=== PATIENT | female | born 1965 | race Caucasian/White ===

== ENCOUNTER 2021-04-03 16:26 | Outpatient (CLI) | payer OTHER, SELFPAY ==
--- NOTE | 2021-04-03 17:19 | XRR_ITS ---
PROCEDURE INFORMATION: Exam: XR Lumbosacral Spine Exam date and time: 04/03/2021 5:19 PM Age: 55 years old Clinical indication: Patient HX: Reports episodes of stepping wrong and leg giving out. C/O low back pain and right hip pain. Worst with movement; Additional info: M54.50 - low back pain, unspecified TECHNIQUE: Imaging protocol: XR of the lumbosacral spine. Views: 2 or 3 views. COMPARISON: No relevant prior studies available. FINDINGS: Bones/joints: Mild lumbar dextroscoliosis. No evidence of fracture. Normal alignment. Mild disc space narrowing at L5/S1, with suspected mild neural foraminal narrowing. Soft tissues: Unremarkable. Organs: 6 mm calcification overlying the lower pole of the right kidney. XR/XR lumbar spine 2-3V* [id number] IMPRESSION: 1. No acute findings. 2. Mild degenerative changes at L5/S1. 3. 6 mm potential right lower pole renal calculus.
--- NOTE | 2021-04-03 17:19 | XRR_ITS ---
PROCEDURE INFORMATION: Exam: XR Right Hip Exam date and time: 04/03/2021 5:19 PM Age: 55 years old Clinical indication: Hip pain; Patient HX: Reports stepping wrong and leg giving out. C/O low back pain and right hip. Worst with movement; Additional info: M25.551 - pain in right hip TECHNIQUE: Imaging protocol: XR Right hip. Views: 1 view hip with pelvis when performed. COMPARISON: No relevant prior studies available. FINDINGS: Bones/joints: No fracture or dislocation. Minimal degenerative changes of the hips. Soft tissues: Unremarkable. XR/XR hip RT 2-3V wo/w pel* [id number] IMPRESSION: No acute findings.
== END 2021-04-03 16:27 | disposition home or self-care (01) ==
LOC: RAD 16:30
PROVIDERS: PCP Nurse Practitioner; Visit Provider Nurse Practitioner Family
DX: M54.50 Low back pain, unspecified (principal); G89.29 Other chronic pain; N20.0 Calculus of kidney; M25.551 Pain in right hip
CPT/HCPCS: 72100; 73502

== ENCOUNTER 2023-12-22 06:00 | Outpatient (RCR) | payer OTHER, SELFPAY | END 2024-01-14 23:59 | disposition home or self-care (01) | LOC: APT 06:00 | PROVIDERS: PCP Family Medicine; Visit Provider Family Medicine | DX: M54.50 Low back pain, unspecified (principal) | CPT/HCPCS: 97110; 97161; 97530 ==

== ENCOUNTER 2024-01-15 06:00 | Outpatient (RCR) | payer OTHER, SELFPAY | END 2024-02-14 23:59 | disposition home or self-care (01) | LOC: APT 06:00 | PROVIDERS: PCP Family Medicine; Visit Provider Family Medicine | DX: M54.50 Low back pain, unspecified (principal) | CPT/HCPCS: 97110; 97112; 97530 ==

== ENCOUNTER → 2025-01-15 08:53 | Outpatient (BNVA) | payer OTHER, SELFPAY | PROVIDERS: PCP Family Medicine; Visit Provider Family Medicine | DX: N39.0 Urinary tract infection, site not specified (principal); R31.9 Hematuria, unspecified; R30.0 Dysuria | CPT/HCPCS: 87077; 87184 ==

== ENCOUNTER 2025-01-21 09:03 | Outpatient (CLI) | payer OTHER, SELFPAY ==
--- NOTE | 2025-01-21 09:00 | CT_ITS ---
WS: [id number] CT ABDOMEN AND PELVIS NONCONTRAST HISTORY: R31.9 - Hematuria, unspecified TECHNIQUE: Imaging performed through the abdomen and pelvis. Coronal and sagittal reformats are submitted. All CT scans at [facility] use at least one of these dose optimization techniques: automated exposure control; mA and/or kV adjustment per patient size (includes targeted exams where dose is matched to clinical indication); or iterative reconstruction. DLP: 258.67 mGy.cm COMPARISON: None available. Lower thorax: Subpleural micronodule RIGHT middle lobe. 4 mm nodule along the RIGHT fissure. Liver: Normal size liver. No mass or bile duct dilatation. Gallbladder: Normal gallbladder. No pericholecystic fluid or cholelithiasis. No gallbladder wall thickening. Pancreas: Normal size and attenuation. Normal pancreatic duct. No pancreatitis or mass. Spleen: Normal. Adrenal glands: Normal. No mass. Right kidney: Normal size kidney. Scattered areas of cortical thinning. 6 mm stone lower pole calyx. There is an additional very tiny nonobstructing stone in the upper pole. There is mild central dilatation with a small extrarenal pelvis. The ureter is not dilated. Left kidney: Normal size kidney. No perinephric stranding. There is no obstruction. 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 Neither ureter is dilated or identified in its course throughout the bladder. Aorta: Mild atherosclerosis abdominal aorta with no aneurysm. No free fluid, intraperitoneal air or significant lymphadenopathy. GI tract: Normally distended stomach. No small bowel obstruction. Moderate diffuse constipation. No appendicitis. No diverticulitis. Abdominal wall: Ventral abdominal wall hernia contains fat only. Pelvis: Portions of the pelvis are being obscured by the RIGHT hip arthroplasty. There is no free fluid or adenopathy identified. Distal RIGHT ureter is obscured. Osseous structures: Osteopenia. Mild increase in lumbar lordosis. Prior RIGHT hip arthroplasty. CT/CT kidney stone [id number] IMPRESSION: 1. RIGHT renal pelvis is slightly dilated and there is an extrarenal pelvis. N o significant hydronephrosis and the ureter is not dilated. No obstructing uret eral calcification seen. 2. Nonobstructing calcifications in the RIGHT kidney. Largest calcification lo wer pole calyx measures 6 mm. 3. No LEFT renal obstruction. 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 4. No appendicitis. 5. Mild diffuse constipation. 6. No free fluid or adenopathy. 7. Distal RIGHT ureter is obscured by artifact from the RIGHT hip arthroplasty .
== END 2025-01-21 09:04 | disposition home or self-care (01) ==
PROVIDERS: PCP Family Medicine; Visit Provider Family Medicine
DX: R31.9 Hematuria, unspecified (principal); R30.0 Dysuria; M54.9 Dorsalgia, unspecified; N20.0 Calculus of kidney; I70.0 Atherosclerosis of aorta; K59.00 Constipation, unspecified; R93.41 Abnormal radiologic findings on diagnostic imaging of renal pelvis, ureter, or bladder; M85.88 Other specified disorders of bone density and structure, other site; M40.46 Postural lordosis, lumbar region; Z96.641 Presence of right artificial hip joint
CPT/HCPCS: 74176; 81000; 87086